=== PATIENT | female | born 1960 | race African-American/Black ===

== ENCOUNTER → 2016-07-29 | Outpatient (CLI) | payer BC ==
[2016-03-12 15:15] VITALS: BP 135/83
--- NOTE | 2016-07-29 11:26 | RAD ---
APPROVED REPORT Test Type: Exercise Stress Nurse/Tech: Amber Elias R.N. Test Indications: chest pain Cardiac History: htn, Medications: see ehr Medical History: see ehr Resting ECG: sr Resting Heart Rate: 76 bpm Resting Blood Pressure: 141/47mmHg Pretest Chest Pain: No chest pain Nurse/Tech Notes lungs cta, heart tones regular, good radial pulse Consent: The procedure was explained to the patient in lay terms. Informed consent was witnessed. Mikhail eout was entered into [employer]. History and Stress Test performed by Amber Elias R.N. Stress Symptoms No chest pain or symptoms. POST EXERCISE Reason for Termination: Reached target heart rate Target HR: Yes Max HR: 159 bpm 96% of Maximum Predicted HR: 165 bpm Exercise duration: 5:59 min:sec, 2 Stage Exercise capacity: 7.0METs Max Blood Pressure: 168/96mmHg Blood Pressure response to exercise: Normal blood pressure response during stress. Heart Rate response to exercise: normal Chest Pain: No. Arrhythmia: No. INTERPRETATION Stress EKG Conclusion: The resting EKG showed a sinus rhythm with slight nonspecific ST segment dominguez es. The stress EKG showed no significant changes from baseline. No EKG evidence of stress-induced ischemia. Imaging Protocol IMAGE PROTOCOL: Rest Tc-99m/stress Tc-99m 1 day Rest: Stress: Viability: Radiopharm.Tc99m [id number] Sestamibi Dose10.9mCi 35mCi Img Date 07/29/2016 07/29/2016 Inj-Img Elev23ral. 60min. Rest Admin Site:IV - Right AntecubitalAdministrator:PRASANNA Farnsworth Stress Admin Site: IV - Right AntecubitalAdministrator: GABRIELA Hawthorne, ARRT (R)(N) STRESS DATA End Diast. Vol.60.0mlAv. Heart Rate88.0bpm End Syst. Vol.10.0mlCO Index BSA0.0L/min Myocardial Ctun710.0gEject. Hrhnohus41.0% Stress Rates Pk. Fill Rate4.62EDV/secLVtime Pk. Fill 190.89msec Pk. Empty Rate5.56ESV/secLVtime Pk. Zonyk339.29msec /3 Pk. Fill1.00EDV/sec Stress Scores Regional WT0.00Summed WT2.00 Regional WM0.00Summed WM0.00 LV Perfusion The stress scans showed no significant defects. The rest scans showed no significant defects. Nuclear imaging shows no reversible ischemia or infarct. Wall Motion Normal left ventricular systolic function with an ejection fraction of greater than 70%. LV Perf. Quant 17 Seg. SSS3.00 17 Seg. SRS3.00 17 Seg. SDS1.00 Stress Defect Extent (% LAD)1.90Rest Defect Extent (% LAD)1.30Rev. Defect Extent (% LAD)0.00 Stress Defect Extent (% LCX) 0.00Rest Defect Extent (% LCX)13.80Rev. Defect Extent (% LCX)0.00 Stress Defect Extent (% RCA)0.00Rest Defect Extent (% RCA)0.00Rev. Defect Extent (% RCA)0.00 Stress Defect Extent (% BHUMI)1.50Rest Defect Extent (% BHUMI)5.70Rev. Defect Extent (% BHUMI)0.00 Conclusion 1. Good exercise tolerance. 2. No chest pain with exertion. 3. No EKG evidence of stress-induced ischemia. 4. Nuclear imaging shows no reversible ischemia or infarct. 5. Good LV systolic function with an ejection fraction of greater than 70%. 6. Low risk treadmill nuclear stress test.
== END | disposition home or self-care (01) ==
LOC: NM 07:35
PROVIDERS: ATTEND Internal Medicine Cardiovascular Disease
DX: R07.9 Chest pain, unspecified (principal)
CPT/HCPCS: 78452; 93017; 96374; 96376; A9500

== ENCOUNTER → 2017-07-28 | Outpatient (CLI) | payer BC | END | disposition home or self-care (01) | LOC: KCIC MAMMO 12:56 | DX: N63.0 Unspecified lump in unspecified breast (principal) | CPT/HCPCS: 76641; 77066; G0279 ==

== ENCOUNTER → 2019-07-26 | Outpatient (CLI) | payer BC ==
[2016-03-12 15:15] VITALS: BP 135/83
--- NOTE | 2019-07-26 12:32 | KCIC ---
Bilateral digital screening mammograms with 3-D tomosynthesis: Reason for examination: Routine screening. Comparison is made to previous studies dated 07/28/2017 and 03/22/2016. Bilateral mammograms in CC and oblique projections were obtained with 2-D imaging and 3-D tomosynthesis imaging on a Siemens Inspiration unit and reviewed on the workstation. Interpretation was made with the benefit of CAD. The skin and nipples show no abnormalities. No abnormal axillary lymph nodes are seen. The breast parenchyma shows scattered fatty and fibroglandular density. (Breast density: Category B.) There continue to be small circumscribed nodules bilaterally which are stable. There are no new dominant masses, suspicious calcifications or architectural distortion. Impression: No evidence of malignancy. Recommend routine screening. BI-RAD Category 2: Benign. "Our facility is accredited by the [employer] Mammography Program." This patient's information has been entered into a reminder system for the patient to be notified with the results of her examination and a target date for the next mammogram. Electronically signed by: Katja Augustin MD (07/26/2019 12:30 PM) [email or web address]
== END | disposition home or self-care (01) ==
LOC: KCIC MAMMO 09:46
PROVIDERS: ATTEND Family Medicine
DX: Z12.31 Encounter for screening mammogram for malignant neoplasm of breast (principal)
CPT/HCPCS: 77063; 77067

== ENCOUNTER → 2021-06-04 | Outpatient (CLI) | payer BC ==
[2016-03-12 15:15] VITALS: BP 135/83
--- NOTE | 2021-06-04 15:46 | KCIC ---
EXAM: Lumbar spine MRI without contrast. HISTORY: Radiculopathy. TECHNIQUE: Multiplanar, multisequence magnetic resonance imaging of the lumbar spine was performed wi thout contrast. COMPARISON: None. FINDINGS: There is abdomen grade 1 anterolisthesis of L4 on L5. There is disc space narrowing and dis c desiccation at this level. There is no suspicious osseous lesion. There is no fracture. The conus t erminates at L1. At L1-L2 and L2-L3, there is no stenosis. At L3-L4, there is mild bilateral facet arthropathy. There is no stenosis. At L4-L5, there is a shallow broad-based left foraminal to extra foraminal disc protrusion and slight superior extrusion superimposed on a disc bulge and endplate remodeling. There is moderate to severe bilateral facet arthropathy. There is grade 1 anterolisthesis. There is mild right and moderate left foraminal stenosis with abutment the exiting left L4 nerve root. There is mild central canal stenosi s. At L5-S1, there is moderate effacement of the thecal sac due to epidural fat. IMPRESSION: 1. L4-L5: Degenerative change contribute into mild right and moderate left foraminal stenosis with ab utment the exiting left L4 nerve root and mild central canal stenosis. 2. Moderate effacement of the thecal sac due to epidural fat at the lumbosacral junction. Electronically signed by: Thea Richey MD (06/04/2021 3:44 PM) [email or web address]
== END ==
LOC: KCIC MRI 14:28
PROVIDERS: ATTEND Family Medicine
DX: M47.26 Other spondylosis with radiculopathy, lumbar region (principal); M48.061 Spinal stenosis, lumbar region without neurogenic claudication; M48.8X6 Other specified spondylopathies, lumbar region; M51.26 Other intervertebral disc displacement, lumbar region; M43.16 Spondylolisthesis, lumbar region
CPT/HCPCS: 72148